=== PATIENT | female | born 1985 | race Caucasian/White ===

== ENCOUNTER 2016-10-11 07:50 | Inpatient (IN) | payer OTHER ==
[~2016-10-11] VITALS: Ht 160 cm; Wt 79.1 kg
[2016-10-11] MEDS: LACTATED RINGERS 1,000 ML IV SCH ×6 (10:42→22:11)
[2016-10-11] MEDS ORDERED: METOCLOPRAMIDE 5 MG/ML, 2ML IV ONE (11:00)
[2016-10-11] MEDS ORDERED: SODIUM CITRATE/CITRIC ACID 30 ML UDC PO ONE (11:00)
[2016-10-11] MEDS ORDERED: LACTATED RINGERS 1,000 ML IVBOLUS ONE (11:00)
[2016-10-11 11:14] VITALS: BP 113/75
[2016-10-11] MEDS ORDERED: FENTANYL PF 100 MCG/2ML ONE (11:19)
[2016-10-11] MEDS ORDERED: PROMETHAZINE 25 MG/ML, 1ML IV PRN (11:30)
[2016-10-11] MEDS ORDERED: OXYcodone 5 MG/5 ML ORAL.SOL UDC PO PRN (11:30)
[2016-10-11] MEDS ORDERED: ONDANSETRON 2MG/ML, 2ML IVPush PRN (11:30)
[2016-10-11] MEDS ORDERED: LABETALOL 5MG/ML, 20ML IV PRN (11:30)
[2016-10-11] MEDS ORDERED: ALBUTEROL SULFATE 2.5 MG/3 ML NPPB PRN (11:30)
[2016-10-11] MEDS ORDERED: MEPERIDINE/PF 25MG/0.5ML IVPush PRN (11:30)
[2016-10-11] MEDS ORDERED: HYDROcodone/APAP 7.5-325MG/15ML UDC PO PRN (11:30)
[2016-10-11] MEDS ORDERED: MIDAZOLAM 1 MG/ML, 2ML IV PRN (11:30)
[2016-10-11] MEDS ORDERED: FENTANYL PF 100 MCG/2ML IV PRN (11:30)
[2016-10-11] MEDS ORDERED: PLEASE ENTER HEIGHT AND WEIGHT MC SCH (11:30)
[2016-10-11] MEDS ORDERED: hydrALAzine 20 MG/ML, 1ML IV PRN (11:30)
[2016-10-11] MEDS ORDERED: METOCLOPRAMIDE 5 MG/ML, 2ML ONE ×2 (11:48→16:27)
[2016-10-11] MEDS ORDERED: SODIUM CITRATE/CITRIC ACID 30 ML UDC ONE (11:48)
[2016-10-11] MEDS ORDERED: OXYTOCIN 30U/ 0.9% NaCL 500ML 500 ML ONE (11:49)
[2016-10-11] MEDS ORDERED: NEWBORN KIT ONE (11:49)
[2016-10-11] MEDS: OXYTOCIN 30U/ 0.9% NaCL 500ML 500 ML IV SCH ×4 (12:11→22:11)
[2016-10-11] MEDS ORDERED: MEPERIDINE/PF 25MG/0.5ML IM PRN (12:30)
[2016-10-11] MEDS ORDERED: RHOGAM FROM BLOOD BANK 1 NOTE EA IM/IV ONE (12:30)
[2016-10-11] MEDS ORDERED: SIMETHICONE 80 MG CHEW TAB PO PRN (12:30)
[2016-10-11] MEDS ORDERED: OXYcodone IR 5MG TABLET PO PRN ×2 (12:30)
[2016-10-11] MEDS ORDERED: MISOPROSTOL 200 MCG TABLET PR PRN (12:30)
[2016-10-11] MEDS ORDERED: DEXTROSE 50%, 50ML SYRINGE IVPush ONE (12:30)
[2016-10-11] MEDS ORDERED: morphine SULFATE 10 MG/ML, 1ML IVPush PRN ×2 (12:30)
[2016-10-11] MEDS ORDERED: ONDANSETRON 2MG/ML, 2ML IV PRN (12:30)
[2016-10-11] MEDS ORDERED: OXYcodone/APAP 5/325MG TABLET PO PRN (12:30)
[2016-10-11] MEDS ORDERED: CALCIUM CARBONATE 500 MG TAB.CHEW PO PRN (12:30)
[2016-10-11] MEDS ORDERED: MEPERIDINE/PF 50 MG/ML IM PRN (12:30)
[2016-10-11] MEDS ORDERED: OXYcodone 5 MG/5 ML ORAL.SOL UDC ONE (15:28)
[2016-10-11 16:05] VITALS: BP 113/72
[2016-10-11] MEDS ORDERED: OXYTOCIN 10 UNITS/ML, 1ML ONE (16:27)
[2016-10-11] MEDS ORDERED: CEFAZOLIN 1,000 MG ONE (16:27)
[2016-10-11] MEDS ORDERED: ONDANSETRON 2MG/ML, 2ML ONE (16:27)
[2016-10-11] MEDS ORDERED: DEXAMETHASONE 4 MG/ML, 1ML ONE (16:27)
[2016-10-11] MEDS ORDERED: KETOROLAC 30 MG/1 ML ONE (16:27)
[2016-10-11] MEDS: KETOROLAC 30 MG/1 ML IV PRN (19:42)
[2016-10-11] MEDS: OXYcodone/APAP 5/325MG TABLET PO PRN (19:49)
[2016-10-11 20:45] VITALS: BP 118/70
[2016-10-11] MEDS: DOCUSATE 100 MG CAPSULE PO SCH (21:00)
[2016-10-12] MEDS: OXYcodone/APAP 5/325MG TABLET PO PRN ×5 (00:03→15:37)
[2016-10-12 00:10] VITALS: BP 111/65
[2016-10-12] MEDS: KETOROLAC 30 MG/1 ML IV PRN ×2 (01:46→08:13)
[2016-10-12] MEDS: LACTATED RINGERS 1,000 ML IV SCH ×8 (02:42→20:11)
[2016-10-12 04:00] VITALS: BP 117/72
[2016-10-12] MEDS: OXYTOCIN 30U/ 0.9% NaCL 500ML 500 ML IV SCH ×4 (06:42→18:11)
[2016-10-12 07:20] VITALS: BP 115/70
[2016-10-12] MEDS: DOCUSATE 100 MG CAPSULE PO SCH ×2 (08:16→20:41)
[2016-10-12] MEDS: PRENATAL VIT/IRON/FA 1 EACH TABLET PO SCH (08:17)
[2016-10-12 12:20] VITALS: BP 106/69
[2016-10-12] MEDS: IBUPROFEN 600 MG TABLET PO PRN (15:37)
[2016-10-12] MEDS ORDERED: MEASLES,MUMPS&RUBELLA VACC/PF 0.5 ML SQ-VACC ONE (16:00)
[2016-10-12 16:14] VITALS: BP 120/72
[2016-10-12 20:20] VITALS: BP 103/68
[2016-10-13] MEDS: IBUPROFEN 600 MG TABLET PO PRN ×2 (03:26→09:17)
[2016-10-13] MEDS: OXYcodone/APAP 5/325MG TABLET PO PRN ×3 (03:26→13:33)
[2016-10-13] MEDS: LACTATED RINGERS 1,000 ML IV SCH ×2 (04:11)
[2016-10-13] MEDS: OXYTOCIN 30U/ 0.9% NaCL 500ML 500 ML IV SCH (04:11)
[2016-10-13 08:16] VITALS: BP 120/62
[2016-10-13] MEDS: DOCUSATE 100 MG CAPSULE PO SCH (09:17)
[2016-10-13] MEDS: PRENATAL VIT/IRON/FA 1 EACH TABLET PO SCH (09:19)
[2016-10-13] MEDS ORDERED: DOCU-30 PO (10:12)
[2016-10-13] MEDS ORDERED: IBUP800T PO (10:15)
[2016-10-13] MEDS ORDERED: OXYC-302 PO (10:17)
[2016-10-13] MEDS ORDERED: MEASLES,MUMPS&RUBELLA VACC/PF 0.5 ML SQ-VACC ONE (12:00)
== END 2016-10-13 15:09 | disposition home or self-care (01) | DRG 766 ==
LOC: LDIP 10:33 → 2NW 15:47
PROVIDERS: ADMIT Obstetrics & Gynecology; ATTEND Obstetrics & Gynecology
PROC: 10D00Z1 Extraction of Products of Conception, Low, Open Approach (ICD-10-PCS; principal; 2016-10-11)
PROC: 0UB70ZZ Excision of Bilateral Fallopian Tubes, Open Approach (ICD-10-PCS; 2016-10-11)
PROC: 3E0334Z Introduction of Serum, Toxoid and Vaccine into Peripheral Vein, Percutaneous Approach (ICD-10-PCS; 2016-10-12)
DX: O34.211 Maternal care for low transverse scar from previous cesarean delivery (principal); Z37.0 Single live birth; O99.52 Diseases of the respiratory system complicating childbirth; J45.909 Unspecified asthma, uncomplicated; O99.344 Other mental disorders complicating childbirth; F32.9 Major depressive disorder, single episode, unspecified; O24.429 Gestational diabetes mellitus in childbirth, unspecified control; F41.9 Anxiety disorder, unspecified; O69.81X0 Labor and delivery complicated by cord around neck, without compression, not applicable or unspecified; O26.893 Other specified pregnancy related conditions, third trimester; Z67.11 Type A blood, Rh negative; Z3A.39 39 weeks gestation of pregnancy; Z30.2 Encounter for sterilization; Z81.1 Family history of alcohol abuse and dependence; Z81.8 Family history of other mental and behavioral disorders; Z23 Encounter for immunization
CPT/HCPCS: 36415; 82962; 85025; 85461; 86850; 86900; 88302; J0690; J1100; J1885; J2405; J2790; J3010; J2590; J2765; J7120